=== PATIENT | female | born 1960 | race Two or more races ===

== ENCOUNTER 2018-04-03 11:59 | Day surgery (SDC) | payer BC ==
[~2018-04-03] VITALS: Ht 160 cm; Wt 66.8 kg
[2018-04-03 13:06] VITALS: Ht 160 cm; Wt 66.8 kg
[2018-04-03] MEDS ORDERED: multivitamin PO (13:15)
[2018-04-03] MEDS ORDERED: ASPI-817 PO (13:15)
[2018-04-03] MEDS ORDERED: htn med PO (13:15)
--- NOTE | 2018-04-03 13:26 | PREAC ---
Date/Time of Note Date/Time of Note DATE: 04/03/18 TIME: 13:24 Anesthesia Eval and Record Evaluation Time Pre-Procedure Interview DATE: 04/03/18 TIME: 13:24 Age 57 Sex female NPO: 8 hrs Preoperative diagnosis GERD / screen for colon cancer Planned procedure EGD / colonoscopy Past Medical History Past Medical History: Includes Cardio: HTN, Dyslipidemia Neuro: CVA GI: GERD Surgery & Anesthesia Issues No known issue Meds Anticoagulation: No Beta Phi within 24 hr: No Reason Beta Phi not given: Pt. not on B-Phi Reported Medications [htn med] No Conflict Check, PO DAILY 04/03/18 Aspirin* (Aspirin* EC) 81 Mg Tablet.dr, 81 MG PO DAILY, TAB 04/03/18 [multivitamin] No Conflict Check, PO DAILY 04/03/18 Meds reviewed: Yes Allergies Coded Allergies: No Known Allergy (Unverified , 04/03/18) Allergies Reviewed: Yes Labs/Studies Labs Reviewed: Reviewed by anesthesiologist test: N/A Pre-procedure Exam Airway: Adequate mouth opening Mallampati: Mallampati II Teeth: Normal Lung: Normal Heart: Normal ASA Physical Status ASA physical status: 2 Emergency: None Planned Anesthetic General/MAC: MAC Pre-operative Attestations Prior to commencing anesthesia and surgery, the patient was re-evaluated, there was verification of: *The patient's identity *The results of appropriate recent lab work and preoperative vital signs *The above evaluation not changing prior to induction *Anesthetic plan, risk benefits, alternative and complications discussed with patient/family; questions answered; patient/family understands, accepts and wishes to proceed. KECIA REY Apr 03, 2018 13:26
[2018-04-03 13:40] VITALS: BP 137/93; PULSE 64; RESP 20
[2018-04-03] MEDS ORDERED: METOCLOPRAMIDE 10 MG INJ IV PRN (14:00)
[2018-04-03] MEDS ORDERED: LABETALOL HCL 20MG INJ IV PRN (14:00)
[2018-04-03] MEDS ORDERED: hydrALAzine 20 MG INJ IV PRN (14:00)
[2018-04-03] MEDS ORDERED: ONDANSETRON 4 MG INJ IV PRN (14:00)
--- NOTE | 2018-04-03 14:09 | PAC ---
Date/Time of Note Date/Time of Note DATE: 04/03/18 TIME: 14:08 Post-Anesthesia Notes Post-Anesthesia Note Last documented vital signs 120/60 RR 16 SpO2 100% FM temp 36.4 HR 70 Activity: WNL Respiratory function: WNL Cardiovascular function: WNL Mental status: Baseline Pain reasonably controlled: Yes Hydration appropriate: Yes Nausea/Vomiting absent: Yes KECIA REY Apr 03, 2018 14:09
--- NOTE | 2018-04-03 14:14 | HPN ---
Date/Time of Note Date/Time of Note DATE: 04/03/18 TIME: 14:14 Interval H&P Admission Note Pt. seen H&P reviewed: No system changes ZOHREH DODGE Apr 03, 2018 14:14
[2018-04-03 14:32] VITALS: BP 106/62; PULSE 68; RESP 24
== END 2018-04-03 16:13 | disposition home or self-care (01) ==
LOC: GIL 11:59
PROVIDERS: ATTEND Internal Medicine Gastroenterology
DX: Z12.11 Encounter for screening for malignant neoplasm of colon (principal); K29.50 Unspecified chronic gastritis without bleeding; K29.80 Duodenitis without bleeding; K64.8 Other hemorrhoids; K26.3 Acute duodenal ulcer without hemorrhage or perforation; K25.3 Acute gastric ulcer without hemorrhage or perforation; K44.9 Diaphragmatic hernia without obstruction or gangrene; I10 Essential (primary) hypertension; E78.5 Hyperlipidemia, unspecified; Z86.73 Personal history of transient ischemic attack (TIA), and cerebral infarction without residual deficits
CPT/HCPCS: 43239; 45378; 88305; 88312; Z7610